=== PATIENT | female | born 1965 | race Caucasian/White ===

== ENCOUNTER → 2016-06-12 | Outpatient (CLI) | payer BC ==
[~2016-06-12] MED LIST: BLOOD PRESSURE MED PO; CORTIFOAM10% RC; FERROUS SULFATE65 MG PO; FLAGYL 250250 MG/TAB PO; FLAGYL500 MG PO; HUMIRA40 MG/0.1 SC; IMURAN 50MG TAB50 MG PO; K-TAB10 PO; KLOR-CON SPRIN10 MEQ PO; LEVAQUIN 5500 MG/TA1 PO; LEVOTHYROXIN0.088 MG PO; LIALDA 1.2 GM1.2 GM PO; LIPITOR20 MG PO; LOVENOX 4040 MG/0.4 SQ; MAGNESIUM500 MG PO; METAMUCIL3.4 GM/DOS PO; MOTRIN 800800 MG/TAB PO; MULTI VITAMINS1 TAB PO; NORCO 325 MG-51 TAB PO; PHENERGAN 25 TA25 MG PO; POTASSIUM GLUC595 M1 PO; PREDNISONE10 MG PO; PREDNISONE20 MG PO; PRINZIDE 25 MG-1 TAB PO; PROBIOTICA100 Milli1 PO; PROTONIX 40MG T40 MG PO; ROXICODONE 55 MG/TAB PO; SYNTHROID0.1 MG/TAB PO; TYLENOL 500MG500 MG PO; TYLENOL 8 HR PO; ULTRAM 50MG TAB50 MG PO; VANCOCIN H250 MG/CAP PO; VITAMIN B COMPL1 SGL PO; ZOCOR 40MG40 MG PO; ZOFRAN 4MG T4 MG/TAB PO; ZOFRAN ODT4 MG PO
== END ==
LOC: COL.RAD 09:45
DX: K51.813 Other ulcerative colitis with fistula (principal)
CPT/HCPCS: A9585

== ENCOUNTER → 2016-08-25 | Outpatient (CLI) | payer BC | LOC: MC.RAD 07:20 | DX: Z12.31 Encounter for screening mammogram for malignant neoplasm of breast (principal); N63 Unspecified lump in breast ==

== ENCOUNTER → 2016-08-29 | Outpatient (CLI) | payer BC | LOC: MC.RAD 14:00 | DX: N63 Unspecified lump in breast (principal); N60.02 Solitary cyst of left breast ==

== ENCOUNTER → 2017-07-11 | Outpatient (CLI) | payer BC | LOC: COL.RAD 07:30 | DX: R10.9 Unspecified abdominal pain (principal); Z90.49 Acquired absence of other specified parts of digestive tract; Z90.710 Acquired absence of both cervix and uterus ==

== ENCOUNTER 2017-09-08 14:03 | Emergency (ER) | payer BC ==
[~2017-09-08] VITALS: Ht 162.6 cm; Wt 88.6 kg
[2017-09-08 14:08] VITALS: TEMP 97.9
[2017-09-08] MEDS ORDERED: XIFAXAN550 MG PO (14:35)
[2017-09-08 15:37] LABS: BASO % 0.4 % (0.0-2.0); EOS # 0.2 (0.0-0.7); EOS % 3.4 % (0-4.0); GRAN # 4.3 (1.4-6.5); GRAN % 64.2 % (42.2-75.2); HEMOGLOBIN 14.8 g/dl (12.5-16.0); LYMPH # 1.4 (1.2-3.4); LYMPH % 20.2 % (20.0-51.0); MEAN CELL VOLUME 86 fl (80.0-100.0); MEAN CORPUSCULAR HEMOGLOBIN 28 pg (27.0-31.0); MEAN CORPUSCULAR HGB CONC 33 g/dl (33.0-37.0); MEAN PLATELET VOLUME 12.2 fl (7.4-10.4); MONO # 0.8 (0.1-0.6); MONO % 11.7 % (1.7-9.3); PLATELET COUNT 222 K/mm3 (130-400); RED BLOOD COUNT 5.25 M/mm3 (4.10-5.30); REDCELL DISTRIBUTION WIDTH-CV 12.1 % (11.5-14.5)
[2017-09-08 15:48] LABS: ALBUMIN 4.7 gm/dL (3.5-5.0); BILIRUBIN,TOTAL 0.6 mg/dL (0.0-1.0); CALCIUM 10.3 mg/dL (8.4-10.2); CREATININE, serum 0.9 mg/dL (0.52-1.25); POTASSIUM 3.8 mmol/L (3.4-5.0); TOTAL PROTEIN 9.2 gm/dL (6.4-8.2)
[2017-09-08 18:06] VITALS: BP 131/88
[2017-09-08] MEDS ORDERED: SYNTHROID0.125 MG/T PO (18:08)
[2017-09-08] MEDS ORDERED: ZOCOR 40MG40 MG PO (18:08)
[2017-09-08] MEDS ORDERED: PRINZIDE 25 MG-1 TAB PO (18:08)
[2017-09-08] MEDS ORDERED: CELEXA 20MG20 MG/TAB PO (18:08)
[2017-09-08] MEDS ORDERED: NEURONTIN300 MG/CAP PO (18:08)
[2017-09-08] MEDS ORDERED: VALTREX 50500 MG/TAB PO (18:10)
[2017-09-08] MEDS ORDERED: ZOFRAN 4MG T4 MG/TAB PO (18:45)
[2017-09-08] MEDS ORDERED: LOMOTIL 0.025 M1 TAB PO (18:45)
[2017-09-08 19:14] VITALS: PULSE 88
== END 2017-09-08 19:14 | disposition home or self-care (01) ==
LOC: COL.ER 14:03
PROVIDERS: Emergency Medicine
DX: R19.7 Diarrhea, unspecified (principal)
CPT/HCPCS: J1170; J2405; J7030

== ENCOUNTER 2017-12-04 06:41 | Day surgery (SDC) | payer BC ==
[~2017-12-04] VITALS: Ht 162.6 cm; Wt 89.8 kg
[~2017-12-04 06:41] MED LIST changes: +CELEXA 20MG20 MG/TAB PO; +LOMOTIL 0.025 M1 TAB PO; +NEURONTIN300 MG/CAP PO; +SYNTHROID0.125 MG/T PO; +VALTREX 50500 MG/TAB PO; +XIFAXAN550 MG PO
[2017-12-04 07:28] VITALS: BP 117/82; PULSE 83; TEMP 97.5
[2017-12-04] MEDS ORDERED: PRINZIDE 12.5 M1 TAB PO (07:39)
[2017-12-04 08:05] VITALS: BP 102/62; PULSE 75
[2017-12-04] MEDS ORDERED: CANASA 1000MG1000 MG RC (08:18)
[2017-12-04] MEDS ORDERED: PENTASA500 MG PO (08:19)
[2017-12-04 08:20] VITALS: BP 106/68; PULSE 70; TEMP 97
[2017-12-04 08:35] VITALS: BP 111/75; PULSE 70
[2017-12-04 08:50] VITALS: BP 102/62; PULSE 75
[2017-12-04 09:05] VITALS: BP 106/47; PULSE 75
== END 2017-12-04 09:13 | disposition home or self-care (01) ==
LOC: SDCO 06:41
DX: K91.850 Pouchitis (principal); K62.89 Other specified diseases of anus and rectum; E03.9 Hypothyroidism, unspecified; Z90.49 Acquired absence of other specified parts of digestive tract; Z88.1 Allergy status to other antibiotic agents; Z87.891 Personal history of nicotine dependence
CPT/HCPCS: J2704; J3010; J7030

== ENCOUNTER 2018-01-22 19:55 | Emergency (ER) | payer BC ==
[~2018-01-22] VITALS: Ht 162.6 cm; Wt 86.4 kg
[~2018-01-22 19:55] MED LIST changes: +CANASA 1000MG1000 MG RC; +PENTASA500 MG PO; +PRINZIDE 12.5 M1 TAB PO
[2018-01-22 19:58] VITALS: BP 140/70; TEMP 98.5
[2018-01-22 20:32] LABS: COLLECTION METHOD CLEAN CATCH
[2018-01-22 20:46] LABS: BASO % 0.5 % (0.0-2.0); EOS # 0.3 (0.0-0.7); EOS % 3.5 % (0-4.0); GRAN # 3.7 (1.4-6.5); GRAN % 45.4 % (42.2-75.2); HEMOGLOBIN 10.5 g/dl (12.5-16.0); LYMPH # 3.1 (1.2-3.4); MEAN CELL VOLUME 86 fl (80.0-100.0); MEAN CORPUSCULAR HEMOGLOBIN 28 pg (27.0-31.0); MEAN CORPUSCULAR HGB CONC 32 g/dl (33.0-37.0); MEAN PLATELET VOLUME 12.2 fl (7.4-10.4); MONO % 12.5 % (1.7-9.3); PLATELET COUNT 205 K/mm3 (130-400); RED BLOOD COUNT 3.82 M/mm3 (4.10-5.30); REDCELL DISTRIBUTION WIDTH-CV 13.5 % (11.5-14.5)
[2018-01-22 20:48] LABS: ALBUMIN 3.8 gm/dL (3.5-5.0); BILIRUBIN,TOTAL 0.2 mg/dL (0.0-1.0); C-REACTIVE PROTEIN 0.6 mg/dL (0.0-0.9); CALCIUM 8.7 mg/dL (8.4-10.2); CREATININE, serum 0.68 mg/dL (0.52-1.25); POTASSIUM 3.7 mmol/L (3.4-5.0); TOTAL PROTEIN 6.8 gm/dL (6.4-8.2)
[2018-01-22 20:49] LABS: HEMATOCRIT 32.9 % (37.0-47.0)
[2018-01-22 20:56] LABS: MUCOUS Present /lpf; PH 6 (5-8); SQUAMOUS EPITHELIAL 0-2 /hpf; URINE APPEARANCE Clear; URINE BACTERIA None Seen /hpf; URINE BILIRUBIN Negative (NEGATIVE); URINE BLOOD Negative (NEGATIVE); URINE COLOR Yellow; URINE GLUCOSE Negative (NEGATIVE); URINE KETONE Negative (NEGATIVE); URINE LEUKOCYTE ESTERASE Trace (NEGATIVE); URINE NITRATE Negative (NEGATIVE); URINE PROTEIN(semi-quant) Negative (NEGATIVE); URINE RBC 0-2 /hpf; URINE UROBILINOGEN Negative (NEGATIVE)
[2018-01-22] MEDS ORDERED: PREDNISONE 5MG5 MG PO (21:18)
[2018-01-22 22:18] VITALS: PULSE 79
== END 2018-01-22 22:18 | disposition home or self-care (01) ==
LOC: COL.ER 19:55
PROVIDERS: Emergency Medicine
DX: G89.29 Other chronic pain (principal); R19.7 Diarrhea, unspecified; R10.9 Unspecified abdominal pain; Z90.49 Acquired absence of other specified parts of digestive tract
CPT/HCPCS: J1170; J2405; J7030; J7512

== ENCOUNTER 2018-07-09 09:45 | Day surgery (SDC) | payer BC ==
[~2018-07-09] VITALS: Ht 162.6 cm; Wt 94.0 kg
[~2018-07-09 09:45] MED LIST changes: +PRAVACHOL 20MG20 MG PO; +PREDNISONE 5MG5 MG PO; -VALTREX 50500 MG/TAB PO; +VALTREX1 GM PO
[2018-07-09] MEDS ORDERED: BENTYL 10MG10 MG/CAP PO (10:14)
[2018-07-09] MEDS ORDERED: HUMIRA40 MG/0.8 SQ (10:15)
[2018-07-09] MEDS ORDERED: PROAIR HFA0.09 MG/AC IH (10:16)
[2018-07-09] MEDS ORDERED: IMODIUM A-D2 MG PO (10:45)
[2018-07-09] MEDS ORDERED: METAMUCIL3.4 GM/DOS PO (10:46)
[2018-07-09 10:50] VITALS: BP 123/84; PULSE 66; TEMP 98
[2018-07-09 12:30] VITALS: BP 107/64; PULSE 72; TEMP 98
--- NOTE | 2018-07-09 12:30 | NUR ---
Pt arrived to room from endo procedure. Pt A/Ox3. Pt walked to chair with steady gait, standby assist. Pt denies any nausea. VSS. Request water and jello at this time. CAll light in reach.
[2018-07-09 12:45] VITALS: BP 117/70; PULSE 76; TEMP 98
--- NOTE | 2018-07-09 12:45 | NUR ---
Pt tolerating water and crackers/jello. Denies any nausea. Pt's in room.
[2018-07-09 13:00] VITALS: BP 115/82; PULSE 73; TEMP 98
[2018-07-09 13:15] VITALS: BP 117/72; PULSE 70; TEMP 98
[2018-07-09 13:25] VITALS: BP 107/64; PULSE 70; TEMP 98
[2018-07-09] MEDS ORDERED: [UNRECOGNIZED DRUG - OTHER] RC (13:31)
[2018-07-09] MEDS ORDERED: XIFAXAN550 MG PO (13:32)
--- NOTE | 2018-07-09 14:00 | NUR ---
Discharge paperwork discussed with pt and pt's . Answered all questions to their satisfaction. Pt given discharge instructions, med list and procedure information.
--- NOTE | 2018-07-09 14:07 | NUR ---
Pt discharged from [facility]. Pt left unit via wheelchair to private vehicle driven by .
== END 2018-07-09 14:07 | disposition home or self-care (01) ==
LOC: SDCO 09:45
DX: K62.89 Other specified diseases of anus and rectum (principal); K62.6 Ulcer of anus and rectum; K91.850 Pouchitis; Z86.14 Personal history of Methicillin resistant Staphylococcus aureus infection; I10 Essential (primary) hypertension; E78.5 Hyperlipidemia, unspecified; J45.909 Unspecified asthma, uncomplicated; Z90.49 Acquired absence of other specified parts of digestive tract; Z90.710 Acquired absence of both cervix and uterus; Z93.2 Ileostomy status; E03.9 Hypothyroidism, unspecified; Z79.899 Other long term (current) drug therapy
CPT/HCPCS: J2704; J7120

== ENCOUNTER → 2018-07-12 | Outpatient (CLI) | payer BC ==
[~2018-07-12] MED LIST changes: +BENTYL 10MG10 MG/CAP PO; +HUMIRA40 MG/0.8 SQ; +IMODIUM A-D2 MG PO; +PROAIR HFA0.09 MG/AC IH; +[UNRECOGNIZED DRUG - OTHER] RC
== END ==
LOC: COL.LAB 10:30
DX: K51.80 Other ulcerative colitis without complications (principal); Z79.899 Other long term (current) drug therapy

== ENCOUNTER 2018-09-12 14:30 | Outpatient (RCR) | payer BC ==
[2018-07-31 09:30] VITALS: BP 130/75; PULSE 75; TEMP 98
[2018-07-31 09:46] LABS: HEMATOCRIT 39.1 % (37.0-47.0); HEMOGLOBIN 12.5 g/dl (12.5-16.0); MEAN CELL VOLUME 86 fl (80.0-100.0); MEAN CORPUSCULAR HEMOGLOBIN 28 pg (27.0-31.0); MEAN CORPUSCULAR HGB CONC 32 g/dl (33.0-37.0); MEAN PLATELET VOLUME 11.2 fl (7.4-10.4); PLATELET COUNT 228 K/mm3 (130-400); RED BLOOD COUNT 4.53 M/mm3 (4.10-5.30); REDCELL DISTRIBUTION WIDTH-CV 14.2 % (11.5-14.5)
[2018-07-31 10:08] LABS: ALBUMIN 4.4 gm/dL (3.5-5.0); BILIRUBIN UNCONJUGATED 0.2 mg/dL (0.0-1.1); BILIRUBIN,DIRECT 0.1 mg/dL (0.0-0.4); BILIRUBIN,TOTAL 0.3 mg/dL (0.0-1.0); TOTAL PROTEIN 7.8 gm/dL (6.4-8.2)
[2018-08-15 14:57] VITALS: BP 118/54; PULSE 89; TEMP 98.5
[2018-08-15 15:11] LABS: MEAN CELL VOLUME 86 fl (80.0-100.0); MEAN CORPUSCULAR HEMOGLOBIN 28 pg (27.0-31.0); MEAN CORPUSCULAR HGB CONC 32 g/dl (33.0-37.0); MEAN PLATELET VOLUME 11.8 fl (7.4-10.4); PLATELET COUNT 219 K/mm3 (130-400); RED BLOOD COUNT 3.97 M/mm3 (4.10-5.30); REDCELL DISTRIBUTION WIDTH-CV 13.5 % (11.5-14.5)
[2018-08-15 15:16] LABS: HEMATOCRIT 34.3 % (37.0-47.0)
[~2018-09-12] VITALS: Ht 162.6 cm; Wt 95.0 kg
[2018-09-12 14:50] LABS: HEMATOCRIT 39.2 % (37.0-47.0); HEMOGLOBIN 12.6 g/dl (12.5-16.0); MEAN CELL VOLUME 88 fl (80.0-100.0); MEAN CORPUSCULAR HEMOGLOBIN 28 pg (27.0-31.0); MEAN CORPUSCULAR HGB CONC 32 g/dl (33.0-37.0); MEAN PLATELET VOLUME 11.6 fl (7.4-10.4); PLATELET COUNT 226 K/mm3 (130-400); RED BLOOD COUNT 4.45 M/mm3 (4.10-5.30); REDCELL DISTRIBUTION WIDTH-CV 13.6 % (11.5-14.5)
[2018-09-12 15:27] VITALS: BP 102/58; PULSE 85; TEMP 98.4
[2018-09-12] MEDS ORDERED: BENTYL 10MG10 MG/CAP PO (15:33)
[2018-09-12 16:00] VITALS: BP 100/55; PULSE 82
[2018-09-12 16:17] VITALS: BP 104/55; PULSE 84
== END 2018-09-12 16:20 | disposition home or self-care (01) ==
LOC: EUO 14:30
PROVIDERS: Internal Medicine Gastroenterology
DX: K51.818 Other ulcerative colitis with other complication (principal); Z79.899 Other long term (current) drug therapy
CPT/HCPCS: J3380; J7050

== ENCOUNTER 2018-12-16 18:59 | Emergency (ER) | payer BC ==
[~2018-12-16] VITALS: Ht 162.6 cm; Wt 68.2 kg
[2018-12-16 19:10] VITALS: TEMP 97.8
[2018-12-16 19:55] LABS: BASO % 0.4 % (0.0-2.0); EOS # 0.5 (0.0-0.7); EOS % 7.9 % (0-4.0); GRAN # 2.9 (1.4-6.5); GRAN % 42.6 % (42.2-75.2); HEMOGLOBIN 11.3 g/dl (12.5-16.0); LYMPH # 2.6 (1.2-3.4); LYMPH % 38.3 % (20.0-51.0); MEAN CELL VOLUME 88 fl (80.0-100.0); MEAN CORPUSCULAR HEMOGLOBIN 28 pg (27.0-31.0); MEAN CORPUSCULAR HGB CONC 31 g/dl (33.0-37.0); MEAN PLATELET VOLUME 11.3 fl (7.4-10.4); MONO # 0.7 (0.1-0.6); MONO % 10.7 % (1.7-9.3); PLATELET COUNT 251 K/mm3 (130-400); RED BLOOD COUNT 4.11 M/mm3 (4.10-5.30); REDCELL DISTRIBUTION WIDTH-CV 15.3 % (11.5-14.5)
[2018-12-16 20:23] LABS: ALANINE AMINOTRANSFERASE 19 U/L (9-52); ALBUMIN 4.3 gm/dL (3.5-5.0); ALKALINE PHOSPHATASE 94 U/L (50-136); ANION GAP 10 mmol/L (7-16); AST,SGOT 41 U/L (15-37); BILIRUBIN,TOTAL 0.4 mg/dL (0.0-1.0); BLOOD UREA NITROGEN 18 mg/dL (7-17); CALCIUM 9.2 mg/dL (8.4-10.2); CARBON DIOXIDE 24 mmol/L (22-30); CHLORIDE 106 mmol/L (98-107); CREATININE, serum 0.55 (0.52-1.25); GLUCOSE 109 mg/dL (74-106); LIPASE 147 U/L (23-300); POTASSIUM 4.7 mmol/L (3.4-5.0); SODIUM 140 mmol/L (137-145); TOTAL PROTEIN 7.5 gm/dL (6.4-8.2)
[2018-12-16 20:34] LABS: C-REACTIVE PROTEIN < 0.5 mg/dL (0.0-0.9)
[2018-12-16 20:59] LABS: COLLECTION METHOD CLEAN CATCH
[2018-12-16 21:05] LABS: MUCOUS Present /lpf; PH 5 (5-8); SQUAMOUS EPITHELIAL None Seen /hpf; URINE APPEARANCE Clear; URINE BACTERIA Rare /hpf; URINE BILIRUBIN Negative (NEGATIVE); URINE BLOOD Negative (NEGATIVE); URINE COLOR Yellow; URINE GLUCOSE Negative (NEGATIVE); URINE KETONE Negative (NEGATIVE); URINE LEUKOCYTE ESTERASE Negative (NEGATIVE); URINE NITRATE Negative (NEGATIVE); URINE PROTEIN(semi-quant) Negative (NEGATIVE); URINE RBC None Seen /hpf; URINE UROBILINOGEN Negative (NEGATIVE)
[2018-12-16 22:05] VITALS: BP 114/65; PULSE 94
== END 2018-12-16 22:08 | disposition home or self-care (01) ==
LOC: COL.ER 18:59
PROVIDERS: Emergency Medicine
DX: K51.90 Ulcerative colitis, unspecified, without complications (principal); E86.0 Dehydration; I10 Essential (primary) hypertension; F32.9 Major depressive disorder, single episode, unspecified; Z90.49 Acquired absence of other specified parts of digestive tract
CPT/HCPCS: J2405; J7030

== ENCOUNTER → 2018-12-17 | Outpatient (CLI) | payer BC | LOC: COL.RAD 07:16 | DX: K51.90 Ulcerative colitis, unspecified, without complications (principal); K63.89 Other specified diseases of intestine; Z93.2 Ileostomy status; Z90.49 Acquired absence of other specified parts of digestive tract; Z90.710 Acquired absence of both cervix and uterus | CPT/HCPCS: Q9967 ==

== ENCOUNTER 2018-12-27 19:49 | Emergency (ER) | payer BC ==
[~2018-12-27] VITALS: Ht 162.6 cm; Wt 99.1 kg
[2018-12-27 20:22] VITALS: TEMP 98.6
[2018-12-27 21:29] LABS: BASO % 0.4 % (0.0-2.0); EOS # 0.7 (0.0-0.7); EOS % 8.9 % (0-4.0); GRAN # 3.5 (1.4-6.5); GRAN % 45.1 % (42.2-75.2); HEMOGLOBIN 11.6 g/dl (12.5-16.0); LYMPH # 2.7 (1.2-3.4); LYMPH % 35.5 % (20.0-51.0); MEAN CELL VOLUME 88 fl (80.0-100.0); MEAN CORPUSCULAR HEMOGLOBIN 28 pg (27.0-31.0); MEAN CORPUSCULAR HGB CONC 32 g/dl (33.0-37.0); MEAN PLATELET VOLUME 11.3 fl (7.4-10.4); MONO # 0.8 (0.1-0.6); PLATELET COUNT 180 K/mm3 (130-400); RED BLOOD COUNT 4.15 M/mm3 (4.10-5.30); REDCELL DISTRIBUTION WIDTH-CV 15.8 % (11.5-14.5)
[2018-12-27 21:31] LABS: HEMATOCRIT 36.7 % (37.0-47.0)
[2018-12-27 21:41] LABS: ALANINE AMINOTRANSFERASE 19 U/L (9-52); ALBUMIN 4.3 gm/dL (3.5-5.0); ALKALINE PHOSPHATASE 91 U/L (50-136); ANION GAP 9 mmol/L (7-16); AST,SGOT 31 U/L (15-37); BILIRUBIN,TOTAL 0.3 mg/dL (0.0-1.0); BLOOD UREA NITROGEN 21 mg/dL (7-17); CALCIUM 9.6 mg/dL (8.4-10.2); CARBON DIOXIDE 25 mmol/L (22-30); CHLORIDE 105 mmol/L (98-107); GLUCOSE 121 mg/dL (74-106); POTASSIUM 3.8 mmol/L (3.4-5.0); SODIUM 139 mmol/L (137-145); TOTAL PROTEIN 7.2 gm/dL (6.4-8.2)
[2018-12-27 21:44] LABS: C-REACTIVE PROTEIN < 0.5 mg/dL (0.0-0.9)
[2018-12-27] MEDS ORDERED: AVELOX 400MG T400 MG PO (23:08)
[2018-12-27 23:39] VITALS: BP 106/48; PULSE 87
== END 2018-12-27 23:39 | disposition home or self-care (01) ==
LOC: COL.ER 19:49
PROVIDERS: Emergency Medicine
DX: T81.49XA Infection following a procedure, other surgical site, initial encounter (principal); Z93.2 Ileostomy status
CPT/HCPCS: J3010; J7030; Q9967

== ENCOUNTER 2019-01-22 19:47 | Emergency (ER) | payer BC ==
[~2019-01-22] VITALS: Ht 162.6 cm; Wt 99.5 kg
[~2019-01-22 19:47] MED LIST changes: +AVELOX 400MG T400 MG PO
[2019-01-22 20:04] VITALS: TEMP 98.3
[2019-01-22 21:23] LABS: BASO % 0.4 % (0.0-2.0); EOS # 0.5 (0.0-0.7); EOS % 6.9 % (0-4.0); GRAN # 3.4 (1.4-6.5); HEMOGLOBIN 11.4 g/dl (12.5-16.0); LYMPH # 2.9 (1.2-3.4); LYMPH % 37.9 % (20.0-51.0); MEAN CELL VOLUME 89 fl (80.0-100.0); MEAN CORPUSCULAR HEMOGLOBIN 28 pg (27.0-31.0); MEAN CORPUSCULAR HGB CONC 32 g/dl (33.0-37.0); MEAN PLATELET VOLUME 12.1 fl (7.4-10.4); MONO # 0.7 (0.1-0.6); MONO % 9.7 % (1.7-9.3); PLATELET COUNT 160 K/mm3 (130-400); RED BLOOD COUNT 4.04 M/mm3 (4.10-5.30); REDCELL DISTRIBUTION WIDTH-CV 15.1 % (11.5-14.5)
[2019-01-22 21:45] LABS: ALANINE AMINOTRANSFERASE 29 U/L (9-52); ALKALINE PHOSPHATASE 82 U/L (50-136); ANION GAP 8 mmol/L (7-16); AST,SGOT 31 U/L (15-37); BILIRUBIN,TOTAL 0.2 mg/dL (0.0-1.0); BLOOD UREA NITROGEN 19 mg/dL (7-17); C-REACTIVE PROTEIN < 0.5 mg/dL (0.0-0.9); CALCIUM 9.2 mg/dL (8.4-10.2); CARBON DIOXIDE 25 mmol/L (22-30); CHLORIDE 105 mmol/L (98-107); GLUCOSE 85 mg/dL (74-106); LIPASE 119 U/L (23-300); POTASSIUM 3.8 mmol/L (3.4-5.0); SODIUM 138 mmol/L (137-145); TOTAL PROTEIN 6.8 gm/dL (6.4-8.2)
[2019-01-22 22:15] LABS: COLLECTION METHOD CLEAN CATCH
[2019-01-22 22:23] LABS: MUCOUS Present /lpf; PH 5 (5-8); SQUAMOUS EPITHELIAL None Seen /hpf; URINE APPEARANCE Clear; URINE BACTERIA None Seen /hpf; URINE BILIRUBIN Negative (NEGATIVE); URINE BLOOD Negative (NEGATIVE); URINE COLOR Yellow; URINE GLUCOSE Negative (NEGATIVE); URINE KETONE Negative (NEGATIVE); URINE LEUKOCYTE ESTERASE Negative (NEGATIVE); URINE NITRATE Negative (NEGATIVE); URINE PROTEIN(semi-quant) Negative (NEGATIVE); URINE RBC 0-2 /hpf; URINE UROBILINOGEN Negative (NEGATIVE)
[2019-01-22 22:51] VITALS: BP 139/77; PULSE 80
== END 2019-01-22 22:53 | disposition home or self-care (01) ==
LOC: COL.ER 19:47
PROVIDERS: Family Medicine
DX: K43.5 Parastomal hernia without obstruction or gangrene (principal)
CPT/HCPCS: J2405; J7030; Q9967

== ENCOUNTER 2019-03-09 12:44 | Emergency (ER) | payer BC ==
[~2019-03-09] VITALS: Ht 162.6 cm; Wt 104.1 kg
[2019-03-09 12:49] VITALS: TEMP 96.9
[2019-03-09] MEDS ORDERED: CYMBALTA 60MG60 MG PO (13:18)
[2019-03-09] MEDS ORDERED: PRILOSEC 20MG20 MG PO (13:18)
[2019-03-09] MEDS ORDERED: PRAVACHOL 20MG20 MG PO (13:18)
[2019-03-09 13:26] LABS: BASO % 0.4 % (0.0-2.0); EOS # 0.3 (0.0-0.7); EOS % 3.3 % (0-4.0); GRAN # 6.7 (1.4-6.5); HEMATOCRIT 40.9 % (37.0-47.0); HEMOGLOBIN 13.5 g/dl (12.5-16.0); LYMPH # 2.3 (1.2-3.4); LYMPH % 22.6 % (20.0-51.0); MEAN CELL VOLUME 88 fl (80.0-100.0); MEAN CORPUSCULAR HEMOGLOBIN 29 pg (27.0-31.0); MEAN CORPUSCULAR HGB CONC 33 g/dl (33.0-37.0); MEAN PLATELET VOLUME 11.3 fl (7.4-10.4); MONO % 9.4 % (1.7-9.3); PLATELET COUNT 273 K/mm3 (130-400); RED BLOOD COUNT 4.63 M/mm3 (4.10-5.30); REDCELL DISTRIBUTION WIDTH-CV 14.6 % (11.5-14.5)
[2019-03-09 13:43] LABS: ALANINE AMINOTRANSFERASE 33 U/L (9-52); ALBUMIN 4.4 gm/dL (3.5-5.0); ALKALINE PHOSPHATASE 174 U/L (50-136); ANION GAP 9 mmol/L (7-16); AST,SGOT 33 U/L (15-37); BILIRUBIN,TOTAL 0.3 mg/dL (0.0-1.0); BLOOD UREA NITROGEN 23 mg/dL (7-17); CALCIUM 9.9 mg/dL (8.4-10.2); CARBON DIOXIDE 25 mmol/L (22-30); CHLORIDE 103 mmol/L (98-107); GLUCOSE 111 mg/dL (74-106); LIPASE 129 U/L (23-300); POTASSIUM 3.9 mmol/L (3.4-5.0); SODIUM 137 mmol/L (137-145); TOTAL PROTEIN 7.7 gm/dL (6.4-8.2)
[2019-03-09 13:48] LABS: C-REACTIVE PROTEIN < 0.5 mg/dL (0.0-0.9)
[2019-03-09] MEDS ORDERED: ZOFRAN ODT4 MG PO (15:51)
[2019-03-09 16:10] VITALS: BP 128/81; PULSE 84
== END 2019-03-09 16:12 | disposition home or self-care (01) ==
LOC: COL.ER 12:44
PROVIDERS: Emergency Medicine
DX: K91.1 Postgastric surgery syndromes (principal)
CPT/HCPCS: J1170; J2405; J7030

== ENCOUNTER 2019-04-07 10:03 | Emergency (ER) | payer BC ==
[~2019-04-07] VITALS: Ht 162.6 cm; Wt 104.5 kg
[~2019-04-07 10:03] MED LIST changes: +CYMBALTA 60MG60 MG PO; +PRILOSEC 20MG20 MG PO
[2019-04-07 10:52] LABS: COLLECTION METHOD CLEAN CATCH
[2019-04-07 11:04] LABS: BASO % 0.6 % (0.0-2.0); EOS # 0.2 (0.0-0.7); EOS % 3.1 % (0-4.0); GRAN # 3.7 (1.4-6.5); HEMATOCRIT 40.8 % (37.0-47.0); HEMOGLOBIN 13.5 g/dl (12.5-16.0); LYMPH # 2.3 (1.2-3.4); LYMPH % 32.1 % (20.0-51.0); MEAN CELL VOLUME 88 fl (80.0-100.0); MEAN CORPUSCULAR HEMOGLOBIN 29 pg (27.0-31.0); MEAN CORPUSCULAR HGB CONC 33 g/dl (33.0-37.0); MEAN PLATELET VOLUME 11.1 fl (7.4-10.4); MONO # 0.9 (0.1-0.6); MONO % 12.9 % (1.7-9.3); PLATELET COUNT 226 K/mm3 (130-400); RED BLOOD COUNT 4.63 M/mm3 (4.10-5.30); REDCELL DISTRIBUTION WIDTH-CV 13.4 % (11.5-14.5)
[2019-04-07 11:09] LABS: MUCOUS Present /lpf; PH 6 (5-8); SQUAMOUS EPITHELIAL None Seen /hpf; URINE APPEARANCE Clear; URINE BACTERIA None Seen /hpf; URINE BILIRUBIN Negative (NEGATIVE); URINE BLOOD Negative (NEGATIVE); URINE COLOR Yellow; URINE GLUCOSE Negative (NEGATIVE); URINE KETONE Negative (NEGATIVE); URINE LEUKOCYTE ESTERASE Negative (NEGATIVE); URINE NITRATE Negative (NEGATIVE); URINE PROTEIN(semi-quant) Negative (NEGATIVE); URINE RBC None Seen /hpf; URINE UROBILINOGEN Negative (NEGATIVE)
[2019-04-07 11:17] LABS: ALANINE AMINOTRANSFERASE 65 U/L (9-52); ALBUMIN 4.3 gm/dL (3.5-5.0); ALKALINE PHOSPHATASE 142 U/L (50-136); ANION GAP 9 mmol/L (7-16); AST,SGOT 62 U/L (15-37); BILIRUBIN,TOTAL 0.5 mg/dL (0.0-1.0); BLOOD UREA NITROGEN 15 mg/dL (7-17); CALCIUM 9.3 mg/dL (8.4-10.2); CARBON DIOXIDE 28 mmol/L (22-30); CHLORIDE 99 mmol/L (98-107); CREATININE, serum 0.69 (0.52-1.25); GLUCOSE 115 mg/dL (74-106); LIPASE 110 U/L (23-300); POTASSIUM 3.5 mmol/L (3.4-5.0); SODIUM 136 mmol/L (137-145); TOTAL PROTEIN 7.5 gm/dL (6.4-8.2)
[2019-04-07 11:21] LABS: C-REACTIVE PROTEIN < 0.5 mg/dL (0.0-0.9)
[2019-04-07 11:27] LABS: TROPONIN-I < 0.012 ng/mL (0.000-0.035)
[2019-04-07 14:15] VITALS: BP 135/72; PULSE 76; TEMP 98.6
== END 2019-04-07 14:15 | disposition home or self-care (01) ==
LOC: COL.ER 10:03
PROVIDERS: Emergency Medicine
DX: R53.81 Other malaise (principal); R74.8 Abnormal levels of other serum enzymes; J45.909 Unspecified asthma, uncomplicated; E78.5 Hyperlipidemia, unspecified; E03.9 Hypothyroidism, unspecified
CPT/HCPCS: J2270; J2405; J7030

== ENCOUNTER 2019-09-02 13:07 | Emergency (ER) | payer BC ==
[~2019-09-02] VITALS: Ht 162.6 cm; Wt 103.2 kg
[2019-09-02 13:10] VITALS: TEMP 98
[2019-09-02 13:59] LABS: BASO # 0.1 (0.0-0.2); BASO % 0.4 % (0.0-2.0); EOS # 0.3 (0.0-0.7); EOS % 2.3 % (0-4.0); GRAN # 7.4 (1.4-6.5); HEMOGLOBIN 14.2 g/dl (12.5-16.0); LYMPH # 2.6 (1.2-3.4); LYMPH % 22.7 % (20.0-51.0); MEAN CELL VOLUME 91 fl (80.0-100.0); MEAN CORPUSCULAR HEMOGLOBIN 30 pg (27.0-31.0); MEAN CORPUSCULAR HGB CONC 33 g/dl (33.0-37.0); MEAN PLATELET VOLUME 11.7 fl (7.4-10.4); MONO # 1.2 (0.1-0.6); MONO % 10.2 % (1.7-9.3); PLATELET COUNT 254 K/mm3 (130-400); RED BLOOD COUNT 4.75 M/mm3 (4.10-5.30); REDCELL DISTRIBUTION WIDTH-CV 12.8 % (11.5-14.5)
[2019-09-02 14:20] LABS: COLLECTION METHOD CLEAN CATCH
[2019-09-02 14:21] LABS: ALANINE AMINOTRANSFERASE 41 U/L (4-34); ALBUMIN 4.6 gm/dL (3.5-5.0); ALKALINE PHOSPHATASE 109 U/L (50-136); ANION GAP 11 mmol/L (7-16); AST,SGOT 45 U/L (15-37); BILIRUBIN,TOTAL 0.7 mg/dL (0.0-1.0); BLOOD UREA NITROGEN 18 mg/dL (7-17); CALCIUM 9.9 mg/dL (8.4-10.2); CARBON DIOXIDE 27 mmol/L (22-30); CHLORIDE 94 mmol/L (98-107); CREATININE, serum 0.62 (0.52-1.25); GLUCOSE 110 mg/dL (74-106); POTASSIUM 3.5 mmol/L (3.4-5.0); SODIUM 132 mmol/L (137-145)
[2019-09-02 14:28] LABS: C-REACTIVE PROTEIN < 0.5 mg/dL (0.0-0.9)
[2019-09-02 14:28] LABS: MUCOUS Present /lpf; PH 6 (5-8); SQUAMOUS EPITHELIAL 0-2 /hpf; URINE APPEARANCE Clear; URINE BACTERIA None Seen /hpf; URINE BILIRUBIN Negative (NEGATIVE); URINE BLOOD Negative (NEGATIVE); URINE COLOR Yellow; URINE GLUCOSE Negative (NEGATIVE); URINE KETONE Negative (NEGATIVE); URINE LEUKOCYTE ESTERASE Negative (NEGATIVE); URINE NITRATE Negative (NEGATIVE); URINE PROTEIN(semi-quant) Negative (NEGATIVE); URINE RBC 0-2 /hpf; URINE UROBILINOGEN Negative (NEGATIVE)
[2019-09-02 14:47] LABS: TROPONIN-I < 0.012 ng/mL (0.000-0.035)
[2019-09-02] MEDS ORDERED: ZOFRAN 4MG T4 MG/TAB PO (16:34)
[2019-09-02 16:40] LABS: CLOSTRIDIUM DIFF A/B NEG
[2019-09-02 16:41] LABS: CLOSTRIDIUM DIFF A/B INTERP No C.diff present
[2019-09-02 16:57] VITALS: BP 133/71; PULSE 93
== END 2019-09-02 16:57 | disposition home or self-care (01) ==
LOC: COL.ER 13:07
PROVIDERS: Emergency Medicine
DX: E86.0 Dehydration (principal); M79.10 Myalgia, unspecified site; I10 Essential (primary) hypertension; E03.9 Hypothyroidism, unspecified; E78.5 Hyperlipidemia, unspecified; Z93.2 Ileostomy status
CPT/HCPCS: J2270; J2405; J7030

== ENCOUNTER → 2020-09-16 | Outpatient (CLI) | payer BC ==
[~2020-09-16] MED LIST changes: +CHERATUSSIN AC120 ML PO; +FERROUS GL325 MG/TAB PO; +FLEXERIL 1010 MG/TAB PO; +K-DUR20 MEQ PO; +MAGNESIUM200 MG PO; +NORVASC 5MG5 MG/TAB PO; +PRINZIDE 12.5 M1 TA1 PO; -PRINZIDE 12.5 M1 TAB PO; +SAXENDA6 MG/ML IJ; +TESSALON PERLE200 MG PO; +VITAMIN D250 MCG PO; +WELLBUTRIN 100100 MG PO; +ZETIA 10MG TAB10 MG PO
== END ==
LOC: COL.RAD 13:45
DX: M25.552 Pain in left hip (principal)
CPT/HCPCS: J3301; Q9967

== ENCOUNTER 2020-10-11 11:36 | Emergency (ER) | payer BC ==
[~2020-10-11] VITALS: Ht 162.6 cm; Wt 96.4 kg
[~2020-10-11 11:36] MED LIST changes: -FERROUS GL325 MG/TAB PO; -FLEXERIL 1010 MG/TAB PO; -K-DUR20 MEQ PO; -MAGNESIUM200 MG PO; -NORVASC 5MG5 MG/TAB PO; -SAXENDA6 MG/ML IJ; -VITAMIN D250 MCG PO; -WELLBUTRIN 100100 MG PO; -ZETIA 10MG TAB10 MG PO
[2020-10-11 12:51] VITALS: TEMP 97.4
[2020-10-11 14:31] LABS: BASO % 0.4 % (0.0-2.0); EOS # 0.2 (0.0-0.7); EOS % 1.9 % (0-4.0); GRAN # 5.9 (1.4-6.5); GRAN % 61.9 % (42.2-75.2); HEMATOCRIT 43.3 % (37.0-47.0); HEMOGLOBIN 14.6 g/dl (12.5-16.0); LYMPH % 21.3 % (20.0-51.0); MEAN CELL VOLUME 89 fl (80.0-100.0); MEAN CORPUSCULAR HEMOGLOBIN 30 pg (27.0-31.0); MEAN CORPUSCULAR HGB CONC 34 g/dl (33.0-37.0); MEAN PLATELET VOLUME 11.3 fl (7.4-10.4); MONO # 1.4 (0.1-0.6); MONO % 14.3 % (1.7-9.3); PLATELET COUNT 285 K/mm3 (130-400); RED BLOOD COUNT 4.88 M/mm3 (4.10-5.30); REDCELL DISTRIBUTION WIDTH-CV 13.6 % (11.5-14.5)
[2020-10-11 14:55] LABS: ALBUMIN 4.5 gm/dL (3.5-5.0); BILIRUBIN,TOTAL 0.6 mg/dL (0.0-1.0); CALCIUM 10.7 mg/dL (8.4-10.2); CREATININE, serum 0.78 (0.52-1.25); POTASSIUM 3.9 mmol/L (3.4-5.0); TOTAL PROTEIN 7.9 gm/dL (6.4-8.2)
[2020-10-11] MEDS ORDERED: FLEXERIL 1010 MG/TAB PO (15:31)
[2020-10-11] MEDS ORDERED: NORCO 325 MG-51 TAB PO (15:31)
[2020-10-11 16:31] VITALS: BP 119/80; PULSE 88
== END 2020-10-11 16:33 | disposition home or self-care (01) ==
LOC: COL.ER 11:36
PROVIDERS: Emergency Medicine
DX: M43.6 Torticollis (principal); B34.9 Viral infection, unspecified; K51.90 Ulcerative colitis, unspecified, without complications
CPT/HCPCS: J1100; J3360; J7030

== ENCOUNTER → 2020-12-07 | Outpatient (CLI) | payer BC ==
[~2020-12-07] MED LIST changes: +FERROUS GL325 MG/TAB PO; +FLEXERIL 1010 MG/TAB PO; +K-DUR20 MEQ PO; +MAGNESIUM200 MG PO; +NORVASC 5MG5 MG/TAB PO; +SAXENDA6 MG/ML IJ; +VITAMIN D250 MCG PO; +WELLBUTRIN 100100 MG PO; +ZETIA 10MG TAB10 MG PO
== END ==
LOC: MC.RAD 09:58
DX: Z12.31 Encounter for screening mammogram for malignant neoplasm of breast (principal)

== ENCOUNTER 2021-02-04 22:40 | Observation (INO) | payer BC ==
[~2021-02-04] VITALS: Ht 162.6 cm; Wt 86.4 kg
[~2021-02-04 22:40] MED LIST changes: -FERROUS GL325 MG/TAB PO; -K-DUR20 MEQ PO; -MAGNESIUM200 MG PO; -NORVASC 5MG5 MG/TAB PO; -SAXENDA6 MG/ML IJ; -VITAMIN D250 MCG PO; -WELLBUTRIN 100100 MG PO; -ZETIA 10MG TAB10 MG PO
[2021-02-05 00:08] LABS: BASO # 0.1 K/mm3 (0.0-0.2); BASO % 0.3 % (0.0-2.0); EOS # 0.1 K/mm3 (0.0-0.7); EOS % 0.8 % (0-4.0); GRAN # 12.5 K/mm3 (1.4-6.5); GRAN % 85.3 % (42.2-75.2); HEMATOCRIT 45.7 % (37.0-47.0); HEMOGLOBIN 15.7 g/dl (12.5-16.0); LYMPH # 0.9 K/mm3 (1.2-3.4); LYMPH % 5.9 % (20.0-51.0); MEAN CELL VOLUME 89 fl (80.0-100.0); MEAN CORPUSCULAR HEMOGLOBIN 31 pg (27.0-31.0); MEAN CORPUSCULAR HGB CONC 34 g/dl (33.0-37.0); MEAN PLATELET VOLUME 10.7 fl (7.4-10.4); PLATELET COUNT 342 K/mm3 (130-400); RED BLOOD COUNT 5.15 M/mm3 (4.10-5.30); REDCELL DISTRIBUTION WIDTH-CV 12.6 % (11.5-14.5)
[2021-02-05 00:24] LABS: ALBUMIN 4.3 gm/dL (3.5-5.0); BILIRUBIN,TOTAL 0.6 mg/dL (0.2-1.2); C-REACTIVE PROTEIN 0.6 mg/dL (0.00-0.50); CALCIUM 11.2 mg/dL (8.4-10.2); CREATININE, serum 0.93 mg/dL (0.57-1.11); MAGNESIUM 1.7 mg/dL (1.6-2.6); PHOSPHOROUS 3.3 mg/dL (2.3-4.7); POTASSIUM 3.9 mmol/L (3.5-4.5); TOTAL PROTEIN 8.5 gm/dL (6.2-8.1)
[2021-02-05] MEDS ORDERED: ZOFRAN ODT4 MG PO (03:08)
--- NOTE | 2021-02-05 05:15 | NUR ---
PT ADMITTED TO ROOM 330 PER W/C FROM ER FOR N/V/DIARRHEA. INT NEEDLE IN RT HAND. CALL LIGHT IN REACH.
[2021-02-05] MEDS ORDERED: ZETIA 10MG TAB10 MG PO (05:36)
[2021-02-05] MEDS ORDERED: NORVASC 5MG5 MG/TAB PO (05:44)
[2021-02-05] MEDS ORDERED: WELLBUTRIN 100100 MG PO (05:45)
[2021-02-05] MEDS ORDERED: K-DUR20 MEQ PO (05:46)
[2021-02-05] MEDS ORDERED: FERROUS GL325 MG/TAB PO (05:47)
[2021-02-05] MEDS ORDERED: VITAMIN D250 MCG PO (05:48)
[2021-02-05] MEDS ORDERED: SAXENDA6 MG/ML IJ (05:50)
[2021-02-05 05:51] VITALS: BP 140/89; PULSE 97; TEMP 98.5
--- NOTE | 2021-02-05 06:15 | NUR ---
PT C/O HEADACHE N/V. SEEM AR FOR ZOFRAN AND DILAUDID.
[2021-02-05 08:35] VITALS: BP 112/55; PULSE 92; TEMP 98.5
[2021-02-05 12:40] VITALS: BP 125/66; PULSE 88; TEMP 98.8
--- NOTE | 2021-02-05 14:51 | NUR ---
PT DISCHARGED HOME IN STABLE CONDITION/ D/C INSTRUCTIONS REVEIWED WITH PT QUESTIONS AND CONCERMS ADDRESSED
--- NOTE | 2021-02-05 16:24 | NUR ---
Plan is to return home with . PRAVEEN met with patient and Ra , alt Enrico [phone]. SW met with patient about care. Patient reports that she has an Ostomy Bag and did not get the care she needed inn ER last night upon arrival. Patient PCP is Dr. Caballero, and patient uses [facility] for RX. Patient rpeorts that she has a Nebulizer forprn use. reports difficulty with care upon arrival. SW notifed house of concerns to reach out. Patient was educated of supports from case management. Does not have any additional DME. Will follow for care.
[2021-02-05 17:10] VITALS: BP 101/61; PULSE 85; TEMP 98.6
--- NOTE | 2021-02-05 20:00 | NUR ---
PT PLACED IN CONTACT ISOLATION FOR NOROVIRUS. PT INFORMED AND VERBALIZES UNDERSTANDING. INFORMED ALSO
[2021-02-05] MEDS ORDERED: CANASA 1000MG1000 MG RC (20:15)
[2021-02-05 21:26] VITALS: BP 109/68; PULSE 90; TEMP 98.8
[2021-02-06] VITALS (7 sets, daily range): BP systolic 103–135; BP diastolic 57–82; PULSE 80–100; TEMP 98.6–99
--- NOTE | 2021-02-06 02:55 | NUR ---
PT C/O FRONTAL LOUIS. BP WNL. SEE MAR FOR DILAUDID GIVEN.
--- NOTE | 2021-02-06 05:48 | NUR ---
PT REPORTS LOUIS RESOLVED.
--- NOTE | 2021-02-06 08:00 | NUR ---
Patient laying in bed, A&Ox4. Denies pain and discomfort. IV CDI, fluids infusing. Contact precautions in place. Ileostomy CDI, maintained by the patient. Contact precautions in place. No further needs expressed from the patient. Call light within reach
[2021-02-06 08:21] LABS: BASO % 0.3 % (0.0-2.0); EOS # 0.1 K/mm3 (0.0-0.7); EOS % 2.4 % (0-4.0); GRAN # 3.4 K/mm3 (1.4-6.5); GRAN % 58.1 % (42.2-75.2); LYMPH # 1.3 K/mm3 (1.2-3.4); LYMPH % 22.5 % (20.0-51.0); MEAN CELL VOLUME 91 fl (80.0-100.0); MEAN CORPUSCULAR HGB CONC 33 g/dl (33.0-37.0); MEAN PLATELET VOLUME 10.9 fl (7.4-10.4); MONO % 16.5 % (1.7-9.3); REDCELL DISTRIBUTION WIDTH-CV 12.8 % (11.5-14.5)
[2021-02-06 08:24] LABS: HEMATOCRIT 34.7 % (37.0-47.0); HEMOGLOBIN 11.6 g/dl (12.5-16.0); MEAN CORPUSCULAR HEMOGLOBIN 31 pg (27.0-31.0); PLATELET COUNT 218 K/mm3 (130-400)
[2021-02-06 08:28] LABS: ALBUMIN 3.1 gm/dL (3.5-5.0); CALCIUM 9.2 mg/dL (8.4-10.2); CREATININE, serum 0.69 mg/dL (0.57-1.11); PHOSPHOROUS 3.6 mg/dL (2.3-4.7); POTASSIUM 3.1 mmol/L (3.5-4.5)
[2021-02-06] MEDS ORDERED: MAGNESIUM200 MG PO (11:45)
--- NOTE | 2021-02-06 18:01 | NUR ---
Patient had an uneventful day. No complaints of N/V/D. A&Ox4. VSS. No IV access, doctor aware. Indpendent in the room. Contact precautions in place. Denies pain and discomfort. No further needs expressed. Call light within reach
--- NOTE | 2021-02-06 21:45 | NUR ---
PT RESTING IN BED. REMAINS IN CONTACT ISOLATION. PT ABLE TO MANAGE OWN ILEOSTOMY CARES. C/O LG AMT OUTPUT. CALLED DAVID WOMACK. SEE NEW ORDER.
--- NOTE | 2021-02-06 21:47 | NUR ---
GAVE METAMUCIL AND IMMODIUM WITH APPLESAUCE FOR LG AMT OUTPUT FROM ILEOSTOMY.
[2021-02-07 03:53] VITALS: BP 106/61; PULSE 85; TEMP 98.8
--- NOTE | 2021-02-07 07:36 | NUR ---
Patient is sleeping in bed. Call light and bedside table are within reach. Will continue to monitor patient throughout shift.
[2021-02-07 08:21] VITALS: BP 120/65; PULSE 84; TEMP 98
[2021-02-07 08:26] LABS: BASO # 0.1 K/mm3 (0.0-0.2); BASO % 0.6 % (0.0-2.0); EOS # 0.3 K/mm3 (0.0-0.7); EOS % 3.2 % (0-4.0); GRAN # 4.1 K/mm3 (1.4-6.5); GRAN % 51.7 % (42.2-75.2); HEMATOCRIT 42.4 % (37.0-47.0); LYMPH # 2.2 K/mm3 (1.2-3.4); LYMPH % 27.7 % (20.0-51.0); MEAN CELL VOLUME 93 fl (80.0-100.0); MEAN CORPUSCULAR HEMOGLOBIN 31 pg (27.0-31.0); MEAN CORPUSCULAR HGB CONC 33 g/dl (33.0-37.0); MEAN PLATELET VOLUME 11.7 fl (7.4-10.4); MONO # 1.3 K/mm3 (0.1-0.6); MONO % 16.5 % (1.7-9.3); PLATELET COUNT 257 K/mm3 (130-400); RED BLOOD COUNT 4.57 M/mm3 (4.10-5.30); REDCELL DISTRIBUTION WIDTH-CV 12.8 % (11.5-14.5)
[2021-02-07 08:39] LABS: ALBUMIN 3.7 gm/dL (3.5-5.0); CALCIUM 10.4 mg/dL (8.4-10.2); CREATININE, serum 0.8 mg/dL (0.57-1.11); PHOSPHOROUS 4.6 mg/dL (2.3-4.7); POTASSIUM 3.6 mmol/L (3.5-4.5)
[2021-02-07 12:13] VITALS: BP 126/82; PULSE 107; TEMP 98
--- NOTE | 2021-02-07 15:00 | NUR ---
Patient health summary, discharge summary and medication printed and reviewed with patient and . Stressed importance of follow up appointments. Reviewed medications. Belongings gathered by his . Patient transported via wheelchair and seatbelted for ride home. Patient and denied questions. Sent patient home with x 4 smaller leg bags. No personal items remain in room.
== END 2021-02-07 15:00 | disposition home or self-care (01) ==
LOC: COL.ER 22:40 → SURG 02-05 04:48
PROVIDERS: Internal Medicine; Student in an Organized Health Care Education/Training Program; ADMIT Internal Medicine
DX: A08.11 Acute gastroenteropathy due to Norwalk agent (principal); R19.7 Diarrhea, unspecified; R65.10 Systemic inflammatory response syndrome (SIRS) of non-infectious origin without acute organ dysfunction; J40 Bronchitis, not specified as acute or chronic; K51.90 Ulcerative colitis, unspecified, without complications; I10 Essential (primary) hypertension; E78.5 Hyperlipidemia, unspecified; E03.9 Hypothyroidism, unspecified; D50.0 Iron deficiency anemia secondary to blood loss (chronic); M79.7 Fibromyalgia; K21.9 Gastro-esophageal reflux disease without esophagitis; F32.9 Major depressive disorder, single episode, unspecified; F41.9 Anxiety disorder, unspecified; Z90.710 Acquired absence of both cervix and uterus; Z79.899 Other long term (current) drug therapy; Z79.890 Hormone replacement therapy; Z79.891 Long term (current) use of opiate analgesic
CPT/HCPCS: 99222-AI; 99232-AI; 99239; G0378; J1170; J1650; J2270; J2405; J2543; J3010; J3475; J7030; J7120; Q9967

== ENCOUNTER 2021-02-08 19:30 | Observation (INO) | payer BC ==
[~2021-02-08] VITALS: Ht 162.6 cm; Wt 92.3 kg
[~2021-02-08 19:30] MED LIST changes: +FERROUS GL325 MG/TAB PO; +K-DUR20 MEQ PO; +MAGNESIUM200 MG PO; +NORVASC 5MG5 MG/TAB PO; +SAXENDA6 MG/ML IJ; +VITAMIN D250 MCG PO; +WELLBUTRIN 100100 MG PO; +ZETIA 10MG TAB10 MG PO
[2021-02-08 20:42] LABS: ALBUMIN 3.8 gm/dL (3.5-5.0); BILIRUBIN,TOTAL 0.2 mg/dL (0.2-1.2); CALCIUM 9.9 mg/dL (8.4-10.2); CREATININE, serum 1.36 mg/dL (0.57-1.11); POTASSIUM 3.5 mmol/L (3.5-4.5)
--- NOTE | 2021-02-08 22:50 | NUR ---
Patient came to the unit alert and oriented, some headache, do not want pain meds, nausea or vomiting. VSS. Assessment completed. SCDs placed. No further needs right now. Call light within reach.
[2021-02-09 00:15] VITALS: BP 115/65; PULSE 82; TEMP 98.2
[2021-02-09 03:38] VITALS: BP 106/54; PULSE 88; TEMP 98
--- NOTE | 2021-02-09 07:07 | NUR ---
Patient has had some rest along the night. She continues receiving fluids 125mls LR. She took the K replacement. No major output from her ileostomy. Shift report given to day nurse.
[2021-02-09 07:36] LABS: BASO % 0.3 % (0.0-2.0); EOS # 0.2 K/mm3 (0.0-0.7); EOS % 1.9 % (0-4.0); GRAN # 5.2 K/mm3 (1.4-6.5); GRAN % 55.9 % (42.2-75.2); HEMOGLOBIN 12.1 g/dl (12.5-16.0); LYMPH % 32.3 % (20.0-51.0); MEAN CELL VOLUME 89 fl (80.0-100.0); MEAN CORPUSCULAR HEMOGLOBIN 30 pg (27.0-31.0); MEAN CORPUSCULAR HGB CONC 34 g/dl (33.0-37.0); MONO # 0.8 K/mm3 (0.1-0.6); PLATELET COUNT 264 K/mm3 (130-400); REDCELL DISTRIBUTION WIDTH-CV 12.6 % (11.5-14.5)
[2021-02-09 07:38] LABS: HEMATOCRIT 35.4 % (37.0-47.0)
[2021-02-09 07:50] LABS: CALCIUM 9.1 mg/dL (8.4-10.2); CREATININE, serum 0.7 mg/dL (0.57-1.11); POTASSIUM 4.4 mmol/L (3.5-4.5)
[2021-02-09 08:18] VITALS: BP 96/56; PULSE 85; TEMP 98.5
[2021-02-09 09:00] VITALS: BP 106/63; PULSE 85; TEMP 98.7
--- NOTE | 2021-02-09 09:15 | NUR ---
0915 Assessment completed. Abdomen soft, nondistended. Bowel sounds x4 quad. Ileostomy intact w/ loose stool. Left anticubital IV infusing sodium chloride 0.9% at 125mL/1hr. IV site patent to Left antecubital. Pt reports feeling better today. Pt denies c/o pain. Meredith Hubbard Screen Printer Helper 1000 contact precautions initiated per patient chart. Meredith Hubbard student nurse 10:27 I agree with the above statements of Meredith luke nurse.
--- NOTE | 2021-02-09 09:54 | NUR ---
tie up worker met with patient to discuss discharge plan. Patient lives at home with her Luis Carlos [phone]) in [place]. Patient reports that she is fully independent with her ADL's and does not utilize any DME or O2. Patient does have an ileostomy that she cares for herself. No HH services are established. PCP is Dr. Calero and she utilizes [facility] in [place] for perscriptions with no cost difficulties. Patient reports that she does not have a DPOA-HC established but verbalizes a desire to complete one. tie up worker provided the patient with education and DPOA-HC form.
--- NOTE | 2021-02-09 10:28 | NUR ---
This licensed clinical social worker and licensed clinical social worker Linda witnessed patients signature on her DPOA-HC. Copy placed in the chart, original with additional copies provided to the patient.
[2021-02-09 11:13] VITALS: BP 126/71; PULSE 99; TEMP 99.1
--- NOTE | 2021-02-09 14:10 | NUR ---
Discharge orders discussed with the patient, instructed to follow up with PCP as scheduled, instructed to continue all previous home meds, no new meds or changes made, IV removed, leaving with her , ambulatory and I will escort them out the door
== END 2021-02-09 14:12 | disposition home or self-care (01) ==
LOC: COL.ER 19:30 → MEDICAL 21:21
PROVIDERS: Student in an Organized Health Care Education/Training Program; ADMIT Family Medicine
DX: A08.11 Acute gastroenteropathy due to Norwalk agent (principal); N17.9 Acute kidney failure, unspecified; E87.6 Hypokalemia; E87.2 Acidosis; K51.90 Ulcerative colitis, unspecified, without complications; I10 Essential (primary) hypertension; E78.5 Hyperlipidemia, unspecified; D50.8 Other iron deficiency anemias; E03.9 Hypothyroidism, unspecified; D50.9 Iron deficiency anemia, unspecified; K21.9 Gastro-esophageal reflux disease without esophagitis; F32.A Depression, unspecified; F41.9 Anxiety disorder, unspecified; M79.7 Fibromyalgia; Z79.890 Hormone replacement therapy; Z93.2 Ileostomy status; Z90.49 Acquired absence of other specified parts of digestive tract; Z79.899 Other long term (current) drug therapy
CPT/HCPCS: G0378; J7030; J7120

== ENCOUNTER 2021-02-24 18:44 | Emergency (ER) | payer BC ==
[~2021-02-24] VITALS: Ht 162.6 cm; Wt 86.4 kg
[2021-02-24 18:49] VITALS: TEMP 98
[2021-02-24 19:44] LABS: BASO % 0.3 % (0.0-2.0); EOS # 0.1 K/mm3 (0.0-0.7); EOS % 1.3 % (0-4.0); GRAN # 6.2 K/mm3 (1.4-6.5); GRAN % 61.6 % (42.2-75.2); HEMATOCRIT 37.8 % (37.0-47.0); HEMOGLOBIN 12.2 g/dl (12.5-16.0); LYMPH # 2.7 K/mm3 (1.2-3.4); LYMPH % 26.6 % (20.0-51.0); MEAN CELL VOLUME 95 fl (80.0-100.0); MEAN CORPUSCULAR HEMOGLOBIN 31 pg (27.0-31.0); MEAN CORPUSCULAR HGB CONC 32 g/dl (33.0-37.0); MEAN PLATELET VOLUME 10.9 fl (7.4-10.4); MONO % 9.9 % (1.7-9.3); PLATELET COUNT 310 K/mm3 (130-400); RED BLOOD COUNT 3.99 M/mm3 (4.10-5.30)
[2021-02-24 20:06] LABS: ALBUMIN 3.6 gm/dL (3.5-5.0); BILIRUBIN,TOTAL 0.4 mg/dL (0.2-1.2); CALCIUM 9.7 mg/dL (8.4-10.2); CREATININE, serum 0.8 mg/dL (0.57-1.11); TOTAL PROTEIN 6.7 gm/dL (6.2-8.1)
[2021-02-24 22:30] VITALS: BP 111/70; PULSE 76
== END 2021-02-24 22:30 | disposition home or self-care (01) ==
LOC: COL.ER 18:44
PROVIDERS: Personal Emergency Response Attendant
DX: N28.9 Disorder of kidney and ureter, unspecified (principal); I10 Essential (primary) hypertension; E03.9 Hypothyroidism, unspecified; K51.90 Ulcerative colitis, unspecified, without complications; Z90.710 Acquired absence of both cervix and uterus; Z79.890 Hormone replacement therapy; Z79.899 Other long term (current) drug therapy; Z88.1 Allergy status to other antibiotic agents
CPT/HCPCS: J2405; J7030

== ENCOUNTER 2021-04-04 09:42 | Emergency (ER) | payer BC ==
[~2021-04-04] VITALS: Ht 162.6 cm; Wt 86.8 kg
[2021-04-04 11:03] VITALS: TEMP 97.8
[2021-04-04 12:23] LABS: BASO % 0.4 % (0.0-2.0); EOS # 0.1 K/mm3 (0.0-0.7); EOS % 1.1 % (0-4.0); GRAN # 4.3 K/mm3 (1.4-6.5); GRAN % 57.7 % (42.2-75.2); HEMATOCRIT 37.9 % (37.0-47.0); HEMOGLOBIN 12.9 g/dl (12.5-16.0); LYMPH # 1.9 K/mm3 (1.2-3.4); LYMPH % 25.6 % (20.0-51.0); MEAN CELL VOLUME 90 fl (80.0-100.0); MEAN CORPUSCULAR HEMOGLOBIN 31 pg (27.0-31.0); MEAN CORPUSCULAR HGB CONC 34 g/dl (33.0-37.0); MONO # 1.1 K/mm3 (0.1-0.6); MONO % 15.1 % (1.7-9.3); PLATELET COUNT 248 K/mm3 (130-400); REDCELL DISTRIBUTION WIDTH-CV 12.6 % (11.5-14.5)
[2021-04-04 12:41] LABS: ALBUMIN 3.5 gm/dL (3.5-5.0); BILIRUBIN,TOTAL 0.3 mg/dL (0.2-1.2); CALCIUM 8.9 mg/dL (8.4-10.2); CREATININE, serum 0.8 mg/dL (0.57-1.11); POTASSIUM 3.3 mmol/L (3.5-4.5); TOTAL PROTEIN 6.6 gm/dL (6.2-8.1)
[2021-04-04 13:54] LABS: COLLECTION METHOD CLEAN CATCH
[2021-04-04 14:00] LABS: PH 6 (5-8); SQUAMOUS EPITHELIAL 0-2 /hpf (0-10); URINE APPEARANCE Hazy (CLEAR/HAZY); URINE BACTERIA None Seen (NONE SEEN); URINE BILIRUBIN Negative (NEGATIVE); URINE BLOOD Negative (NEGATIVE); URINE GLUCOSE Negative (NEGATIVE); URINE KETONE Negative (NEGATIVE); URINE LEUKOCYTE ESTERASE Negative (NEGATIVE); URINE NITRATE Negative (NEGATIVE); URINE PROTEIN(semi-quant) Negative (NEGATIVE); URINE RBC 0-2 /hpf (0-2); URINE UROBILINOGEN Negative (NEGATIVE)
[2021-04-04 14:09] LABS: URINE COLOR Yellow (YELLOW)
[2021-04-04 14:57] VITALS: BP 118/67; PULSE 93
== END 2021-04-04 14:55 | disposition home or self-care (01) ==
LOC: COL.ER 09:42
PROVIDERS: Physician Assistant
DX: E86.0 Dehydration (principal); R19.7 Diarrhea, unspecified; Z90.49 Acquired absence of other specified parts of digestive tract
CPT/HCPCS: J0500; J7030

== ENCOUNTER 2021-04-05 21:30 | Emergency (ER) | payer BC ==
[~2021-04-05] VITALS: Ht 162.6 cm; Wt 86.4 kg
[2021-04-05 21:43] VITALS: TEMP 98.8
[2021-04-05 22:19] LABS: COLLECTION METHOD CLEAN CATCH
[2021-04-05 22:24] LABS: BASO % 0.5 % (0.0-2.0); EOS # 0.1 K/mm3 (0.0-0.7); EOS % 1.1 % (0.0-4.0); GRAN # 4.5 K/mm3 (1.4-6.5); GRAN % 60.4 % (42.2-75.2); HEMATOCRIT 42.2 % (37.0-47.0); HEMOGLOBIN 14.5 g/dl (12.5-16.0); LYMPH # 1.8 K/mm3 (1.2-3.4); LYMPH % 24.3 % (20.0-51.0); MEAN CELL VOLUME 87 fl (80.0-100.0); MEAN CORPUSCULAR HEMOGLOBIN 30 pg (27-31); MEAN CORPUSCULAR HGB CONC 34 g/dl (33.0-37.0); MEAN PLATELET VOLUME 11.5 fl (7.4-10.4); MONO % 13.4 % (1.7-9.3); MUCOUS Present (NOT PRESENT); PH 6 (5-8); PLATELET COUNT 173 K/mm3 (130-400); RED BLOOD COUNT 4.85 M/mm3 (4.10-5.30); REDCELL DISTRIBUTION WIDTH-CV 12.5 % (11.5-14.5); SQUAMOUS EPITHELIAL None Seen /hpf (0-10); URINE APPEARANCE Clear (CLEAR/HAZY); URINE BACTERIA None Seen (NONE SEEN); URINE BILIRUBIN Negative (NEGATIVE); URINE BLOOD Negative (NEGATIVE); URINE COLOR Yellow (YELLOW); URINE GLUCOSE Negative (NEGATIVE); URINE KETONE Negative (NEGATIVE); URINE LEUKOCYTE ESTERASE Negative (NEGATIVE); URINE NITRATE Negative (NEGATIVE); URINE PROTEIN(semi-quant) Negative (NEGATIVE); URINE RBC 0-2 /hpf (0-2); URINE UROBILINOGEN Negative (NEGATIVE)
[2021-04-05 22:38] LABS: ALBUMIN 3.9 gm/dL (3.5-5.0); BILIRUBIN,TOTAL 0.3 mg/dL (0.2-1.2); C-REACTIVE PROTEIN 3.02 mg/dL (0.00-0.50); CALCIUM 9.6 mg/dL (8.4-10.2); CREATININE, serum 0.83 mg/dL (0.57-1.11); POTASSIUM 3.5 mmol/L (3.5-4.5); TOTAL PROTEIN 7.8 gm/dL (6.2-8.1)
[2021-04-06 00:27] VITALS: BP 116/74; PULSE 93
== END 2021-04-06 00:27 | disposition home or self-care (01) ==
LOC: COL.ER 21:30
PROVIDERS: Family Medicine
DX: E86.0 Dehydration (principal); R19.7 Diarrhea, unspecified; E87.6 Hypokalemia; M79.7 Fibromyalgia; K51.90 Ulcerative colitis, unspecified, without complications; Z90.710 Acquired absence of both cervix and uterus; Z90.49 Acquired absence of other specified parts of digestive tract; Z79.899 Other long term (current) drug therapy
CPT/HCPCS: C9113; J2270; J2405; J7120

== ENCOUNTER → 2021-07-18 | Outpatient (CLI) | payer BC | LOC: COL.RAD 07:23 | DX: M48.02 Spinal stenosis, cervical region (principal); M47.812 Spondylosis without myelopathy or radiculopathy, cervical region; R29.898 Other symptoms and signs involving the musculoskeletal system ==

== ENCOUNTER → 2021-11-28 | Outpatient (CLI) | payer BC | LOC: COL.RAD 09:01 | DX: Z98.1 Arthrodesis status (principal); Z98.890 Other specified postprocedural states ==

== ENCOUNTER 2022-02-24 01:51 | Emergency (ER) | payer BC ==
[~2022-02-24] VITALS: Ht 160 cm; Wt 93.6 kg
[~2022-02-24 01:51] MED LIST changes: +ADVIL200 MG PO; +CYMBALTA 30MG30 MG PO; +EXCEDRIN1 TAB PO; +LEVOXYL0.125 MG PO; +PROVENTIL0.09 MG/A1 IH; +SAXENDA6 MG/ML SQ; +VALTREX 50500 MG/TAB PO; +WELLBUTRIN SR150 M1 PO; +ZESTORETIC 12.51 TA1 PO
[2022-02-24 01:58] VITALS: TEMP 98.1
[2022-02-24 03:45] VITALS: BP 101/58; PULSE 89
== END 2022-02-24 04:00 | disposition home or self-care (01) ==
LOC: COL.ER 01:51
DX: S86.912A Strain of unspecified muscle(s) and tendon(s) at lower leg level, left leg, initial encounter (principal); Z96.652 Presence of left artificial knee joint; Z87.891 Personal history of nicotine dependence; W18.30XA Fall on same level, unspecified, initial encounter; X50.1XXA Overexertion from prolonged static or awkward postures, initial encounter
CPT/HCPCS: J1170; J2060; J3010

== ENCOUNTER → 2022-06-07 | Outpatient (CLI) | payer BC | LOC: COL.RAD 10:30 | DX: M25.551 Pain in right hip (principal) | CPT/HCPCS: J3301; Q9967 ==